=== PATIENT | male | born 1980 | race American Indian/Alaskan Native ===

== ENCOUNTER 2021-05-31 06:24 | Emergency (ER) | payer OTHER ==
[2021-05-31] MEDS ORDERED: NITROGLYCERIN 0.4 MG TAB SUBL SL ONE (06:46)
[2021-05-31] MEDS ORDERED: ASPIRIN 81 MG TAB CHEW PO ONE (06:46)
[2021-05-31] MEDS ORDERED: SODIUM CHLORIDE 0.9% 1000 ML 1,000 ML IV ONE (06:46)
--- NOTE | 2021-05-31 06:52 | Emergency Department Report ---
ED General Adult HPI - General Stated complaint: CHEST PAIN/LT ARM PAIN Time Seen by Provider: 05/31/21 06:45 - History of Present Illness Initial comments: Patient presents secondary to left arm pain and chest pain. He was awoken approximately 2 AM due to severe left arm pain. He states his left arm was hurting and was severe. The pain was aching in nature. It involved his entire left arm. He tried to rub it, that made things worse. He tried to have his put pressure on his arm. That also made things worse. He states that he finally got up this morning and was driving to work. While he was driving to work, he started to feel somewhat lightheaded. His left arm was more severe. He broke out into a sweat. He called family and they suggested he get seen because "those are symptoms of a heart attack." Patient states that while he was sitting in the wheelchair here, his arm was hurting. He started having chest pain. He describes it as a throbbing sensation across the precordium. The pain is constant but does seem to wax and wane. He has not noticed any aggravating or alleviating factors for the chest pain. He states that his arm was worse with palpation and with pressure. 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 He states that he had 2 episodes of diaphoresis. He does not feel short of breath. Has no nausea or vomiting. He does not have any syncopal or near syncopal events. He also states that his left leg feels numb and tingly. He just noticed that when I was asking him that question. Patient has never had symptoms like this before. Has no known coronary artery disease. He has not been ill recently. He has had no recent travel. - Related Data Previous Rx's Medication Instructions Recorded Last Taken Type Ibuprofen [Motrin] 600 mg PO Q8H PRN #20 tablet 05/31/21 Unknown Rx Metaxalone [Skelaxin] 800 mg PO TID #9 tablet 05/31/21 Unknown Rx Allergies Allergy/AdvReac Type Severity Reaction Status Date / Time No Known Allergies Allergy Unverified 05/31/21 06:46 ED Review of Systems ROS: Stated complaint: CHEST PAIN/LT ARM PAIN Other details as noted in HPI Comment: All other systems reviewed and negative Constitutional: denies: fever Eyes: denies: vision change ENT: denies: epistaxis Respiratory: denies: cough Cardiovascular: as per HPI Endocrine: denies: unexplained weight loss Gastrointestinal: denies: abdominal pain Genitourinary: denies: dysuria Musculoskeletal: denies: back pain Skin: denies: rash Neurological: as per HPI, numbness (Left leg). denies: headache Hematological/Lymphatic: denies: easy bruising ED Past Medical Hx - Past Medical History Previous Medical History?: No - Medications Home Medications: Home Medications Medication Instructions Recorded Confirmed Last Taken Type Ibuprofen [Motrin] 600 mg PO Q8H PRN #20 tablet 05/31/21 Unknown Rx Metaxalone [Skelaxin] 800 mg PO TID #9 tablet 05/31/21 Unknown Rx ED Physical Exam - General Limitations: No Limitations, Other (Pulse ox noted and normal) General appearance: alert, in no apparent distress, anxious - Head Head exam: Present: atraumatic, normocephalic - Eye Eye exam: Present: normal appearance, EOMI. Absent: scleral icterus - ENT ENT exam: Present: normal orophraynx, normal external ear exam - Neck Neck exam: Present: normal inspection. Absent: meningismus - Respiratory Respiratory exam: Present: normal lung sounds bilaterally. Absent: respiratory distress - Cardiovascular Cardiovascular Exam: Present: regular rate, normal rhythm - GI/Abdominal GI/Abdominal exam: Present: soft. Absent: distended, tenderness - Extremities Exam Extremities exam: Present: normal capillary refill. Absent: calf tenderness - Back Exam Back exam: Absent: CVA tenderness (R), CVA tenderness (L) - Neurological Exam Neurological exam: Present: alert, oriented X3, CN II-XII intact, motor sensory deficit (Patient reports subjective numbness to the left arm and left leg). Absent: normal gait - Psychiatric Psychiatric exam: Present: normal mood, anxious - Skin Skin exam: Present: warm, dry ED Course Vital Signs 05/31/21 05/31/21 05/31/21 06:50 08:24 08:30 Temperature 97.4 F L Pulse Rate 109 H 102 H 98 H Respiratory 18 10 L Rate Blood Pressure 134/87 128/69 128/69 O2 Sat by Pulse 100 97 100 Oximetry 05/31/21 05/31/21 05/31/21 08:46 09:00 09:16 Temperature Pulse Rate 95 H 87 77 Respiratory 19 20 16 Rate Blood Pressure 121/79 121/79 114/60 O2 Sat by Pulse 99 98 99 Oximetry 05/31/21 05/31/21 05/31/21 09:30 09:46 10:00 Temperature Pulse Rate 105 H 98 H 102 H Respiratory 19 17 19 Rate Blood Pressure 114/60 121/79 106/67 O2 Sat by Pulse 98 97 100 Oximetry 05/31/21 05/31/21 05/31/21 10:16 10:43 10:46 Temperature Pulse Rate 99 H 93 H Respiratory 20 16 Rate Blood Pressure 106/67 106/67 106/67 O2 Sat by Pulse 100 100 100 Oximetry 05/31/21 05/31/21 11:01 11:15 Temperature Pulse Rate 90 90 Respiratory 21 19 Rate Blood Pressure 114/59 106/67 O2 Sat by Pulse 100 100 Oximetry - Reevaluation(s) Reevaluation #1: 05/31/21 06:51 EKG was noted. IV and labs were ordered. Old records reviewed. Reevaluation #2: 05/31/21 08:53 Labs have been noted. X-ray was reviewed. Patient has had 1 sublingual nitro and his pain has improved, although he is still having left arm pain. A second nitro was administered. Second EKG has been ordered. Reevaluation #3: 05/31/21 11:51 Repeat troponin have been noted. Patient was subsequently discharged. ED Medical Decision Making - Lab Data Result diagrams: 05/31/21 07:00 05/31/21 07:00 - EKG Data -: EKG Interpreted by Me - EKG Data 05/31/21 06:51 0636-EKG shows a normal sinus rhythm at 97. Intervals are normal including a QRS of 79 and a QT corrected of 420. Patient has J-point elevation in the 2 through the 5. There is no reciprocal changes suggestive of ischemia. There is J-point elevation in lead I in addition. Patient does have LVH. There is no old EKG for comparison. 05/31/21 11:51 0936-EKG #2 shows normal sinus rhythm at 95. Intervals normal including a QRS of 77 and a QT corrected of 337. Patient still has LVH. There is still J-point elevation in V2 through V5. There is still some J-point elevation in lead I. There is still no reciprocal change. There is no change from prior EKG. - Radiology Data Radiology results: report reviewed - Medical Decision Making Patient presents with left arm pain that was clearly reproducible with movement and palpation. He started having chest pain. He has had 2 - troponins. EKG does appear to be more consistent with early repolarization as opposed to acute STEMI. There is no evidence of reciprocal change. He has had a negative troponin x2. His pain has not changed with sublingual nitrates. I do not believe this represents ACS. Patient has no radiographic evidence of cardiomegaly. There is no pneumonia or pneumothorax. Patient does not have a wide mediastinum or pulse deficit. I am not concerned for aortic dissection based on that presentation. He has no risk factor for pulmonary embolism. Pain is not pleuritic. Is not hypoxic or tachycardic. Critical Care Time: No Critical care attestation.: If time is entered above; I have spent that time in minutes in the direct care of this critically ill patient, excluding procedure time. ED Disposition Clinical Impression: Left arm pain, Precordial chest pain Disposition: 01 HOME / SELF CARE / HOMELESS Is pt being admited?: No Condition: Stable Instructions: Nonspecific Chest Pain, Adult, Pain Without a Known Cause Additional Instructions: Drink plenty water. Return for problems. Follow-up with your regular doctor or the referral physician for recheck and further management. Try ice and heat to your arm to see which works better. Rest your arm is much as possible. Prescriptions: Ibuprofen [Motrin] 600 mg PO Q8H PRN #20 tablet PRN Reason: Pain Metaxalone [Skelaxin] 800 mg PO TID #9 tablet Referrals: BARBARA PRITCHARD MD [Primary Care Provider] - 3-5 Days LUIS GONZALES MD [Staff Physician] - 3-5 Days
[2021-05-31 07:23] LABS: Basophils # (Auto) 0.1 K/mm3 (0.0-0.1); Basophils % (Auto) 0.5 % (0.0-1.8); Eosinophils # (Auto) 0.1 K/mm3 (0.0-0.4); Eosinophils % (Auto) 1.3 % (0.0-4.3); Hematocrit 43.1 % (35.5-45.6); Hemoglobin 14.2 gm/dl (11.8-15.2); Lymphocytes # (Auto) 1.2 K/mm3 (1.2-5.4); Lymphocytes % (Auto) 11.5 % (13.4-35.0); Mean Corpuscular HGB Conc 33 % (32-34); Mean Corpuscular Volume 87 fl (84-94); Monocytes # (Auto) 0.7 K/mm3 (0.0-0.8); Monocytes % (Auto) 7.1 % (0.0-7.3); Platelet Count 333 K/mm3 (140-440); Red Blood Count 4.94 M/mm3 (3.65-5.03)
[2021-05-31 07:46] LABS: Alanine Aminotransferase 38 units/L (7-56); Albumin 4.2 g/dL (3.9-5); BUN/Creatinine Ratio 14; Blood Urea Nitrogen 13 mg/dL (9-20); Calcium 8.7 mg/dL (8.4-10.2); Hemolysis Index 4
--- NOTE | 2021-05-31 08:15 | XRay Report ---
Or CHEST 2 VIEWS INDICATION: Chest pain, weakness and left arm. COMPARISON: none FINDINGS: Support devices: None. Heart: Within normal limits. Lungs/pleura: No acute air space or interstitial disease. No pleural abnormality or pneumothorax. Additional findings: None. IMPRESSION: No acute findings. Signer Name: Boris Singh Jr, MD Signed: 05/31/2021 8:11 AM Workstation Name: [id number]
[2021-05-31 12:05] VITALS: BP 122/70
--- NOTE | 2021-06-01 09:02 | Electrocardiograph Report ---
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
--- NOTE | 2021-06-01 09:02 | Electrocardiograph Report ---
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
== END 2021-05-31 12:05 | disposition home or self-care (01) ==
LOC: ED 06:24
DX: M79.602 Pain in left arm (principal); R07.2 Precordial pain; Z79.899 Other long term (current) drug therapy
CPT/HCPCS: 36415; 71046; 80048; 80053; 84484; 85025; 93005; 93010; 96360; 99284; J7030; Q0162